=== PATIENT | male | born 1990 | race Caucasian/White ===

== ENCOUNTER 2020-10-25 | Outpatient (REF) | payer OTHER, SELFPAY ==
--- NOTE | ~2020-10-25 | XR_ITS ---
EXAMINATION: XR SHOULDER, LEFT CLINICAL INFORMATION: Left shoulder pain. COMPARISON: Most recent left shoulder radiographs dated 06/20/2015. TECHNIQUE: AP, scapular Y, and axillary views of the left shoulder. FINDINGS: Redemonstration of a cortical defect at the inferior glenoid with an adjacent 1.1 cm soft tissue ossification, consistent with a displaced bony Bankart lesion. Flattening and cortical irregularity at the posterolateral aspect of the humeral head, increased when compared to the prior examination and consistent with a Hill-Sachs deformity. Slight anterior subluxation of the humeral head on the axillary view. No significant marginal osteophytes. Small amount of air within the joint space as well as within the anterior overlying soft tissues. XR/XR shoulder LT min 2V IMPRESSION: Bony Bankart lesion with a resultant osseous fragment measuring up to 1.1 cm in the inferior joint space. Hill-Sachs deformity, more prominent when compared to the prior examination. Slight anterior subluxation of the humeral head on axillary views. Small amount of air within the joint space as well as within the anterior soft tissues, likely indicating a recent anteroinferior humeral head dislocation.
== END 2020-10-25 00:01 | disposition home or self-care (01) ==
LOC: HO.HOSX
PROVIDERS: Visit Provider Orthopaedic Surgery
DX: M25.512 Pain in left shoulder (principal); M25.312 Other instability, left shoulder
CPT/HCPCS: 73030

== ENCOUNTER → 2020-10-25 09:21 | Outpatient (BNVA) | payer OTHER, SELFPAY | PROVIDERS: PCP Internal Medicine; Visit Provider Orthopaedic Surgery | DX: M25.519 Pain in unspecified shoulder (principal) ==

== ENCOUNTER 2020-11-07 18:49 | Outpatient (REF) | payer OTHER, SELFPAY ==
--- NOTE | ~2020-11-07 | MR_ITS ---
EXAMINATION: MRI SHOULDER WITHOUT CONTRAST, LEFT CLINICAL INFORMATION: Instability. COMPARISON: Radiographs 10/25/2020. TECHNIQUE: MRI of the shoulder without contrast is performed on a 1.5 Stacie high-field scanner. FINDINGS: ROTATOR CUFF: Intact. No muscle atrophy or fatty infiltration. BICEPS: Normal. CORACOACROMIAL ARCH: The undersurface of the acromion is flat with no subacromial spur. The acromioclavicular joint is normal. LABRUM/CAPSULE: There is an osseous Bankart and irregular chronic tearing and scarring of the anterior inferior labrum. The osseous fragment measures approximately 10 x 5 mm, is slightly displaced medially and appears partially fused with the adjacent glenoid. GLENOHUMERAL JOINT/MARROW: There is full-thickness cartilage loss and flattening of the anterior inferior glenoid. Cartilage thinning and irregularity extends proximally to the anterior superior glenoid. There is a large Hill-Sachs deformity. There is a concavity with edema at the anterior aspect of the Hill-Sachs suggesting a recent recurrent anterior inferior dislocation. There is a moderate joint effusion with diffuse synovitis/debris. There is a small ossified body in the axillary recess and probable small bodies in the biceps tendon sheath. ADDITIONAL FINDINGS: None. MR/MR shoulder LT wo con IMPRESSION: Chronic anterior inferior shoulder dislocation with possible recent recurrent injury. Osseous Bankart which appears partially healed, with irregular tearing and scarring of the anterior inferior labrum, cartilage loss and remodeling of the anterior inferior glenoid, and a large Hill-Sachs deformity. Moderate joint effusion with synovitis/debris. No rotator cuff tear.
== END 2020-11-07 18:50 | disposition home or self-care (01) ==
LOC: HO.MRI 18:49
PROVIDERS: Visit Provider Orthopaedic Surgery
DX: M25.312 Other instability, left shoulder (principal)
CPT/HCPCS: 73221

== ENCOUNTER 2020-11-22 16:00 | Outpatient (RCR) | payer OTHER, SELFPAY ==
--- NOTE | 2020-11-09 13:15 | MHC.PT.EP ---
[facility] [place] Office [place] Office [place] Office [address] Stalin Ortiz [address] [phone] F: [phone] F: [phone] F: [phone] F: [phone] Physical Therapy Plan of Care Date of Evaluation: 11/09/20 Date of Surgery: NA Diagnosis: L SHLDER INSTABILITY Assessment: Pt IS 30 YO RHD M REFERRED TO PT FROM DR JONES WITH INSTABILITY L SHLDER. Pt REPORTS INJURY ABOUT 2 YRS AGO (DISLOCATION WITH SELF RE-LOCATION TYPE) WITH SOME SIMILAR INCIDENTS (LAST EPISODE ABOUT 1 MONTH AGO WHILE PLAYING HOCKEY). Pt HAS NEVER HAD HIS SHLDER RELOCATED IN ER AND HAS NOT HAD ANY PT TREATMENT. XRAY SHOWS HILL SACHS AND BANKART LESIONS AND DR JONES REPORTS TYPE 3 ACROMION. AWAITING MRI RESULTS. Pt PRESENTS WITH APPREHENSION AT END RANGES OF MOTION..LIMITED IN CAPSULAR PATTERN WITH LIMITED STRENGTH. REPORTS SOME PAIN BUT MOSTLY AFFECTED BY LIMITED ROM FOR WORKING OUT AND PLAYING SPORTS. MAY NEED SURGICAL INTERVENTION. SHOULD BENEFIT FROM PT FOR RC/SCAP STRENGTHENING WITH PROGRESSION TO STABILIZATION EXS WITH GENTLY STRETCHING GALINA. Frequency and Duration: The patient will be seen 2X/WK>1X/WK X 6 WKS Short Term Goals: 1. INCREASED POSTURE AWARENESS AND AWARENESS SHLDER CARE. FERNY/MARIA TAPING AT HOME WITH ASSIST IF INDICATED 2. I HEP WITH DC EX PLAN Still Operator Batch Or Continuous Goals: 1. DECREASED L SHLDER PAIN AT LEAST 50% WITH ADLS 2. INCREASED SHLDER ROM 10 DEGREES FOR FLEX, 20 DEGREES FOR ABD AND ER 3. INCREASED L SHLDER STRENGTH 1/2 MM GRADE 4. LESS FEELING OF APPREHENSION WITH USE L UE 5. IMPROVED SPADI Treatment Plan: Modalities to reduce pain, spasms and effusion. Manual therapy to restore motion and function. Therapeutic exercise to improve strength and flexibility. Neuromuscular re-education for posture and balance. Therapeutic activities to return to functional activities of daily living. Electronically signed by: ALLYSON CARSON PT Please sign and return to therapist. Thank you for your referral.
--- NOTE | 2021-02-24 13:43 | MHC.PT.DC ---
[facility] [place] Office [place] Office [place] Office [address] Stalin Ortiz [address] [phone] F: [phone] F: [phone] F: [phone] F: [phone] Physical Therapy Discharge Report Diagnosis: L SHLDER INSTABILITY Date of Surgery: NA Date of Evaluation: 11/09/20 Date of Discharge: 02/24/21 Treatments to Date: 3 Cancellations to Date: 3 No Shows to Date: Discharge Status: Patient Elected to Stop Discharge Summary: Pt LAST SEEN ON 11/22/20 THEN CANCELLED LAST SCHEDULED APPT. PER ASSESSMENT AT LAST SESSION PER NOTE FROM HANNA MERRILL LEAD SETTER...[ Pt progressed with ex's in stabe pos w/o px and pt instructed in proper progression w/program] Electronically signed by: ALLYSON CARSON PT Please sign and return to therapist. Thank you for your referral.
== END 2021-02-24 13:44 | disposition other institution (70) ==
LOC: HO.PT 16:00
PROVIDERS: PCP Internal Medicine; Visit Provider Orthopaedic Surgery
DX: M25.312 Other instability, left shoulder (principal)
CPT/HCPCS: 97110; 97162; 97530; 97535

== ENCOUNTER 2021-10-19 09:15 | Outpatient (REF) | payer OTHER, SELFPAY ==
[2021-10-19 09:48] LABS: MANUAL DIFF FLAG NO
[2021-10-19 10:04] LABS: Basophils Percent Auto 0.6 % (0-2); Eosinophils Absolute Auto 0.2 X10*3/uL (0.0-0.4); Eosinophils Percent Auto 3.3 % (0-4); Hematocrit 44.6 % (42.0-52.0); Hemoglobin 15.4 g/dl (14.0-18.0); Imm Gran Abs Auto 0.01 X10*3/uL (0.00-0.03); Imm Gran Pct Auto 0.2 % (0.0-0.4); Lymphocytes Absolute Auto 2.1 X10*3/uL (1.2-4.9); Mean Corpuscular HGB Conc 34.5 g/dl (31.0-36.0); Mean Corpuscular Hemoglobin 28.7 pg (27.0-33.0); Mean Corpuscular Volume 83.2 fL (80.0-98.0); Mean Platelet Volume 9.3 fL (9.4-12.4); Monocytes Absolute Auto 0.5 X10*3/uL (0.1-1.2); Monocytes Percent Auto 8.7 % (2-11); Neutrophils Absolute Auto 2.7 x10*3/uL (2.0-8.3); Neutrophils Percent Auto 49.2 % (45-73); Platelet Count 193 X10*3/uL (160-400); Red Blood Count 5.36 X10*6/uL (4.60-5.80); White Blood Count 5.4 X10*3/uL (4.8-10.8)
[2021-10-19 10:34] LABS: Alanine Aminotransferase 18 U/L (0-40); Albumin Level 4.6 g/dL (3.5-5.0); Alkaline Phosphatase 67 U/L (39-117); Anion Gap 10 (12-20); Aspartate Amino Transferase 16 U/L (5-37); Blood Urea Nitrogen 14 mg/dL (9-16); Calcium 9.5 mg/dL (8.4-10.2); Carbon Dioxide 26 mmol/L (22-29); Chloride 105 mmol/L (96-108); Cholesterol 199 mg/dL; Estimated Glomerular Filt Rate > 60; Glucose Fasting 87 mg/dL (60-99); HDL Cholesterol 32 mg/dL; LDL Cholesterol Calculated 144 mg/dl; Potassium 4.4 mmol/L (3.3-5.1); Sodium 137 mmol/L (135-145); Total Protein 7.3 g/dL (6.5-8.0); Triglycerides 116 mg/dL
[2021-10-19 10:43] LABS: Appearance Urine HAZY; Color Urine YELLOW; Glucose Urine UA NEG (NEG); Leukocyte Esterase Urine NEG (NEG); Nitrite Urine NEG (NEG); Specific Gravity - Urine 1.025 (1.005-1.025); Urine Blood NEG (NEG); Urine Ketones NEG (NEG); Urine Protein NEG (NEG-TRACE)
[2021-10-19 10:55] LABS: TSH reflex Free T4 1.58 uIU/mL (0.32-4.0)
[2021-10-25 07:52] LABS: Levetiracetam Keppra 21.6 mcg/mL (12.0-46.0)
== END 2021-10-19 09:16 | disposition home or self-care (01) ==
LOC: HO.LAB 09:15
PROVIDERS: PCP Internal Medicine; Visit Provider Internal Medicine
DX: Z00.00 Encounter for general adult medical examination without abnormal findings (principal); G40.909 Epilepsy, unspecified, not intractable, without status epilepticus
CPT/HCPCS: 36415; 80053; 80061; 80177; 81003; 82306; 84443; 85025

== ENCOUNTER 2023-10-29 12:55 | Outpatient (AMB) | payer OTHER, SELFPAY ==
--- NOTE | 2023-10-29 12:59 | A.OFFPC_ITS ---
Vital Signs 10/29/23 13:00 Height 6 ft Weight 256 lb BMI 34.7 BP 120/80 Blood Pressure Location Lt brachial Position Sitting Pulse 97 Pulse Source Pulse Oximeter Pulse Oximetry (%) 96 Oxygen Delivery Method Room Air Intake Visit Reasons: PE Diesel Dinkey Operator Required: No Accompanied by: Self / Same As Patient Allergies cephalexin [Keflex] Allergy (Unknown, Verified 10/29/23 13:30) Unknown Medication List - Last Reconciled 10/29/23 by Jhon Egan MD cholecalciferol (vitamin D3) 50 mcg PO DAILY 90 days levetiracetam 2,000 mg PO BID Tobacco use date assessed: 10/29/23 Dental Screening Dental Screen Date: 10/29/23 Did you have a dental visit in the last 12 months?: No Did you have a dental problem in the last 6 months where you did not have access to dental care?: No Was dental information given to patient?: No HPI PE HPI Details Patient comes in today for his annual physical examination States that he is just getting over a cold that he had over the past weekend States that he still has some nasal/sinus congestion and mild sore throat but feels that his symptoms are starting to clear up - he is just taking some OTC cough/cold meds PRN lately for symptomatic relief He denies any headaches or dizziness; denies any fever Denies any chest pains, no SOB No nausea/vomiting, no abdominal pain No change in bowel habits noted He denies any acute urinary symptoms He was not able to get his previously ordered labs done yet [facility] Medical History Overweight (BMI 25.0-29.9) Pure hypercholesterolemia Vitamin D deficiency Left knee pain Instability of left shoulder joint Epilepsy Surgical History H/O prior ablation treatment Family History Father Diabetes Hypertension Hyperlipidemia Mother Breast cancer Family/Other Alzheimers disease Social History Housing: Apartment Alcohol intake: current Alcohol intake frequency: a few times a month Alcohol type: beer Patient Tobacco Use Status: Never used Tobacco e-Cigarette/Vaping Use: Never Used Second Hand Smoke Exposure: Yes service: No Current occupational status: employed Current occupation: [employer] Cognitive needs: No Hearing needs: No Vision needs: No Questionnaire PHQ-9 Over the last 2 weeks, how often have you been bothered by any of the following problems? 1. Little interest or pleasure in doing things: not at all 2. Feeling down, depressed, or hopeless: not at all 3. Trouble falling or staying asleep, or sleeping too much: not at all 4. Feeling tired or having little energy: not at all 5. Poor appetite or overeating: not at all 6. Feeling bad about yourself - or that you are a failure or have let yourself or your family down: not at all 7. Trouble concentrating on things, such as reading the newspaper or watching television: not at all 8. Moving or speaking so slowly that other people could have noticed. Or the opposite - being so fidgety or restless that you have been moving around a lot more than usual: not at all 9. Thoughts that you would be better off or of hurting yourself in some way: not at all Total score: 0 Depression Screening Interpretation: Negative Depression Screening Done: Yes 35095 - PHQ-9 Billing: Yes Source: Developed by Drs. Aidan Ojeda, Desiree Phillips, James Muller and colleagues, with an educational frannie from [employer]. Thrive Questionnaire Date Thrive assessed: 10/29/23 I am a: Patient What is your living situation today?: I have a steady place to live Within the past 12 months, did the food you bought not last and you didn't have the money to get more?: Never true Within the past 12 months, did you worry whether your food would run out before you got money to buy more?: Never true Do you have trouble paying for medicines?: No Do you have trouble getting transportation to medical appointments?: No Do you have trouble paying your heating and electricity bill?: No Do you have trouble taking care of your child, family member or friend?: No Do you have trouble with day-to-day activities such as bathing, preparing meals, shopping, managing finances, etc.?: No Are you currently unemployed and looking for a job?: No Are you interested in more education?: No Please select the resources that you would like help with: None Currently or been in a relationship where the following occur: no concerns reported THRIVE Score: 0 AUDIT C Alcohol Use Questionnaire (AUDIT-C) 1. How often do you have a drink containing alcohol?: Never 3. How often do you have six or more drinks on one occasion?: Never Total Score: 0 Score Reviewed/Action Taken: Yes NIESHA-7 AMB Questionnaire NIESHA-7 Date NIESHA - 7 assessed: 10/29/23 Feeling nervous, anxious, or on edge: 0 = Not at all Not being able to stop or control worryin = Not at all Worrying too much about different things: 0 = Not at all Trouble relaxin = Not at all Being so restless that it is hard to sit still: 0 = Not at all Becoming easily annoyed or irritable: 0 = Not at all Feeling afraid as if something awful might happen: 0 = Not at all Total NIESHA-7 score (0-4 normal; 5-9 mild; 10-14 moderate; 15-21 severe): 0 Source: Developed by Drs. Aidan Ojeda, Desiree Phillips, James Muller and colleagues, with an educational frannie from [employer]. Review of Systems Const Denies chills, Denies fatigue, Denies fever(s), Denies headache(s), Denies malaise and Denies weakness Eyes Denies blurry vision, Denies change in vision, Denies irritation and Denies itc hy eyes ENT Denies dysphagia, Denies dizziness, Denies otalgia, Denies headache(s), Reports nasal congestion, Denies neck pain, Denies odynophagia, Denies sinus pain and Reports sore throat (mild) Card Denies chest pain, Denies rapid heart rate, Denies irregular heart rhythm, Denies palpitations and Denies dyspnea Resp Denies chest congestion, Denies cough, Denies dyspnea and Denies wheezing GI Denies abdominal pain, Denies bloating, Denies constipation, Denies dysphagia, Denies heartburn, Denies diarrhea, Denies nausea, Denies odynophagia and Denies vomiting Denies hematuria, Denies difficulty urinating, Denies dysuria, Denies urinary frequency and Denies urinary urgency Musc Denies back pain, Denies arthralgias, Denies joint swelling, Denies muscle weakness and Denies neck pain Skin/Breast Denies change in pigmentation, Denies lesions, Denies rash and Denies unusual bruising Neuro Denies dizziness, Denies headache(s), Denies paresthesias and Denies weakness Endo Denies fatigue and Denies palpitations Aller/Immun Denies itchy eyes and Denies wheezing Physical exam (Primary Care) Vital Signs: Last Vital Signs Pulse 97 10/29/23 13:00 BP 120/80 10/29/23 13:00 Pulse Ox 96 10/29/23 13:00 Oxygen Delivery Method Room Air 10/29/23 13:00 BMI result Body Mass Index 34.7 Tobacco/Smoking Status: Tobacco use Status Tobacco use date assessed 10/29/23 10/29/23 13:07 Patient Tobacco Use Status Never used Tobacco 10/29/23 13:07 e-Cigarette/Vaping Use Never Used 10/29/23 13:07 PHQ-9: PHQ-9 Score PHQ-9: Total score 0 10/29/23 13:07 Depression Screening Interpretation: Negative Thrive Assessment: Date of Thrive Assessment Date Thrive assessed 10/29/23 10/29/23 13:07 Currently or been in a relationship where the following occur: no concerns reported Const General: no acute distress, alert and awake Orientation/consciousness: patient oriented x3 HENMT Head: Yes normocephalic and Yes atraumatic Ears: external ears normal, TM's normal bilaterally and EAC's normal General nose exam: No nasal discharge present Face and sinus: Yes normal facial exam and Yes sinuses nontender Teeth and gingiva: dentition normal Throat: Yes tonsils normal (no TP congestion) and Yes posterior oropharynx abnormal (increased erythema of the posterior pharynx) Eyes Eyelids: Yes eyelids normal Conjunctivae: conjunctivae normal Pupils: Equal, round and reactive pupils present EOM: EOMs intact bilaterally Neck Neck: Yes no lymphadenopathy and Yes supple Thyroid: Thyroid normal Resp Auscultation: clear to auscultation bilaterally, no rales and no wheezes Cardio Rate: regular rate Rhythm: regular rhythm Heart sounds: no murmurs GI Palpation (GI): Soft to palpation, nontender and No hepatosplenomegaly present Auscultation: normal bowel sounds General: Yes no CVA tenderness Back/Spine/Pelvis Back: no CVA tenderness Thoracic/Lumbar Spine: thoracic and lumbar spine normal to inspection Skin Lesions: no lesions Rashes: no rashes Neuro General: patient oriented x3, moves all extremities, no focal motor deficits and CN's II-XI intact bilaterally Cranial nerves: Yes Equal, round and reactive pupils present Cognition (Neuro): normal cognition Gait exam (Neuro): Normal gait present Extrem General: Yes no clubbing, cyanosis or edema Assessment and Plan Assessment & Plan (1) Annual physical exam: Code(s): Z00.00 - Encounter for general adult medical examination without abnormal findings Plan: Check labs - reminded that his labs were ordered from last year and he just has to go and get them done anytime [place] (2) Upper respiratory tract infection: Code(s): J06.9 - Acute upper respiratory infection, unspecified Qualifiers: URI type: unspecified viral URI Qualified Code(s): J06.9 - Acute upper respiratory infection, unspecified Plan: Patient feels that his symptoms are starting to improve/resolve Continue OTC cough/cold meds PRN for symptomatic relief (3) Pure hypercholesterolemia: Code(s): E78.00 - Pure hypercholesterolemia, unspecified Plan: Reminded that his LDL cholesterol level was elevated when it was last checked a couple of years ago in 2021; patient did not get his labs done as ordered last year Reinforced low cholesterol diet Will recheck fasting lipids [place] for follow up - advised that if his LDL cholesterol come back significantly higher than previous, we may need to consider starting him on cholesterol-lowering medications Will have him recheck his labs in 1 year for follow up (4) Epilepsy: Code(s): G40.909 - Epilepsy, unspecified, not intractable, without status epilepticus Qualifiers: Epilepsy type: unspecified Intractability: not intractable Status epilepticus: without status epilepticus Qualified Code(s): G40.909 - Epilepsy, unspecified, not intractable, without status epilepticus Plan: No seizures recently Continue Levetiracetam 2000 mg BID Will recheck his serum Keppra level for follow up Follow up with [facility] as scheduled (5) Vitamin D deficiency: Code(s): E55.9 - Vitamin D deficiency, unspecified Plan: Continue Vitamin D3 2000 units QD Will recheck his Vitamin D level for follow up (6) Instability of left shoulder joint: Comment: MRI of the left shoulder done on 11/07/2020 revealed (+) chronic anterior inferior shoulder dislocation with possible recent recurrent injury. Osseous Bankart w hich appears partially healed, with irregular tearing and scarring of the anterior inferior labrum, cartilage loss and remodeling of the anterior inferior glenoid, and a large Hill-Sachs deformity. Moderate joint effusion with synovitis/debris. No rotator cuff tear is seen. Code(s): M25.312 - Other instability, left shoulder Plan: Follow up with orthopedics as scheduled (7) Obesity (BMI 30-39.9): Code(s): E66.9 - Obesity, unspecified Plan: Reinforced diet/exercise as tolerated/lose weight - he has gained some weight since his last visit a year ago States that he has not been able to get back to the gym consistently since he returned to in-person work sometime last year - he was working out consistently when he was working from home during the pandemic Plan To return in 1 year for his next annual physical examination Orders: Orders Complete Blood Count Auto Diff 364 Days D64.9 - Anemia, unspecified, Z00.00 - Encounter for general adult medical examination without abnormal findings TSH reflex Free T4 364 Days E78.00 - Pure hypercholesterolemia, unspecified, Z00.00 - Encounter for general adult medical examination without abnormal findings UA CC w/rflx Micro + Cult 364 Days R30.0 - Dysuria, Z00.00 - Encounter for general adult medical examination without abnormal findings Comprehensive [place]. Panel Fast 364 Days E78.00 - Pure hypercholesterolemia, unspecified, Z00.00 - Encounter for general adult medical examination without abnormal findings Lipid Panel 364 Days E78.00 - Pure hypercholesterolemia, unspecified, Z00.00 - Encounter for general adult medical examination without abnormal findings Vitamin D 25-OH Total 364 Days E55.9 - Vitamin D deficiency, unspecified, Z00.00 - Encounter for general adult medical examination without abnormal findings Coding Level of Care Code Est Pt Prev Care [id number]([id number]) Diagnoses Annual physical exam Z00.00 Viral upper respiratory tract infection J06.9 URI type: unspecified viral URI Pure hypercholesterolemia E78.00 Nonintractable epilepsy without status epilepticus, unspecified epilepsy type G40.909 Epilepsy type: unspecified Intractability: not intractable Status epilepticus: without status epilepticus Vitamin D deficiency E55.9 Instability of left shoulder joint M25.312 Obesity (BMI 30-39.9) E66.9
[2023-10-29 13:00] VITALS: BP 120/80; PULSE 97; O2SAT 96; BMI 34.7
== END 2023-10-29 13:35 | disposition home or self-care (01) ==
PROVIDERS: PCP Internal Medicine; Visit Provider Internal Medicine
DX: Z00.00 Encounter for general adult medical examination without abnormal findings (principal); G40.909 Epilepsy, unspecified, not intractable, without status epilepticus; E66.9 Obesity, unspecified; Z68.34 Body mass index [BMI] 34.0-34.9, adult; J06.9 Acute upper respiratory infection, unspecified; E78.00 Pure hypercholesterolemia, unspecified; E55.9 Vitamin D deficiency, unspecified; M25.312 Other instability, left shoulder
CPT/HCPCS: 99395

== ENCOUNTER 2024-10-30 12:37 | Outpatient (AMB) | payer OTHER, SELFPAY ==
--- NOTE | 2024-10-30 12:46 | MHC.PC.OV ---
Vital Signs 10/30/24 12:49 Height 6 ft Weight 241 lb BMI 32.7 BP 120/76 Blood Pressure Location Lt brachial Position Sitting Pulse 89 Pulse Source Pulse Oximeter Pulse Oximetry (%) 97 Oxygen Delivery Method Room Air Intake Visit Reasons: pe Processing Analyst Required: No Accompanied by: Self / Same As Patient Allergies cephalexin [Keflex] Allergy (Unknown, Verified 10/30/24 13:11) Unknown Medication List - Last Reconciled 10/30/24 by Jhon Egan MD cholecalciferol (vitamin D3) 50 mcg PO DAILY 90 days levetiracetam 2,000 mg PO BID Tobacco use date assessed: 10/30/24 Dental Screening Dental Screen Date: 10/30/24 Did you have a dental visit in the last 12 months?: No Did you have a dental problem in the last 6 months where you did not have access to dental care?: No Was dental information given to patient?: No HPI pe HPI Details Patient comes in today for his annual physical examination States that feels okay but reports feeling fatigued often Notes that he feels tired even when he just woke up in the morning States that he drinks a lot of coffee during the day to help keep him alert so he is not able to tell whether he has any significant daytime somnolence or not but thinks it is likely he does since he has to drink a lot a coffee to keep him going States that his father and his brother both have sleep apnea and he suspects that he may also have it as well He denies any headaches or dizziness Denies any chest pains, no shortness of breath No nausea/vomiting, abdominal pain No change bowel habits noted He denies any acute urinary symptoms States that he has not had any seizures since 2020 - he continues to take Keppra 2000 mg BID He used to follow-up with [facility] neurology but has not been back to see them in over 2 years now He was not able to get his previously ordered labs done prior to his appointment today - states that he will try to get these done [facility] Medical History Overweight (BMI 25.0-29.9) Pure hypercholesterolemia Vitamin D deficiency Left knee pain Instability of left shoulder joint Epilepsy Surgical History H/O prior ablation treatment Family History Father Diabetes Hypertension Hyperlipidemia Mother Breast cancer Family/Other Alzheimers disease Social History Housing: Apartment Alcohol intake: current Alcohol intake frequency: a few times a month Alcohol type: beer Patient Tobacco Use Status: Never used Tobacco e-Cigarette/Vaping Use: Never Used Second Hand Smoke Exposure: Yes service: No Current occupational status: employed Current occupation: [employer] Cognitive needs: No Hearing needs: No Vision needs: No Questionnaire PHQ-9 Over the last 2 weeks, how often have you been bothered by any of the following problems? 1. Little interest or pleasure in doing things: not at all 2. Feeling down, depressed, or hopeless: not at all 3. Trouble falling or staying asleep, or sleeping too much: not at all 4. Feeling tired or having little energy: not at all 5. Poor appetite or overeating: not at all 6. Feeling bad about yourself - or that you are a failure or have let yourself or your family down: not at all 7. Trouble concentrating on things, such as reading the newspaper or watching television: not at all 8. Moving or speaking so slowly that other people could have noticed. Or the opposite - being so fidgety or restless that you have been moving around a lot more than usual: not at all 9. Thoughts that you would be better off or of hurting yourself in some way: not at all Total score: 0 Depression Screening Interpretation: Negative Depression Screening Done: Yes 08224 - PHQ-9 Billing: Yes Source: Developed by Drs. Aidan Ojeda, Desiree Phillips, James Muller and colleagues, with an educational frannie from [employer]. Thrive Questionnaire Date Thrive assessed: 10/30/24 I am a: Patient What is your living situation today?: I choose not to answer this question Within the past 12 months, did the food you bought not last and you didn't have the money to get more?: I choose not to answer this question Within the past 12 months, did you worry whether your food would run out before you got money to buy more?: I choose not to answer this question Do you have trouble paying for medicines?: I choose not to answer this question Do you have trouble getting transportation to medical appointments?: I choose not to answer this question Do you have trouble paying your heating and electricity bill?: I choose not to answer this question Do you have trouble taking care of your child, family member or friend?: I choose not to answer this question Do you have trouble with day-to-day activities such as bathing, preparing meals, shopping, managing finances, etc.?: I choose not to answer this question Are you currently unemployed and looking for a job?: I choose not to answer this question Are you interested in more education?: I choose not to answer this question Please select the resources that you would like help with: None Currently or been in a relationship where the following occur: I choose not to answer THRIVE Score: 0 AUDIT C Alcohol Use Questionnaire (AUDIT-C) 1. How often do you have a drink containing alcohol?: Never 3. How often do you have six or more drinks on one occasion?: Never Total Score: 0 Score Reviewed/Action Taken: Yes NIESHA-7 AMB Questionnaire NIESHA-7 Date NIESHA - 7 assessed: 10/30/24 Feeling nervous, anxious, or on edge: 0 = Not at all Not being able to stop or control worryin = Not at all Worrying too much about different things: 0 = Not at all Trouble relaxin = Not at all Being so restless that it is hard to sit still: 0 = Not at all Becoming easily annoyed or irritable: 0 = Not at all Feeling afraid as if something awful might happen: 0 = Not at all Total NIESHA-7 score (0-4 normal; 5-9 mild; 10-14 moderate; 15-21 severe): 0 Source: Developed by Drs. Aidan Ojeda, Desiree Phillips, James Muller and colleagues, with an educational frannie from [employer]. Review of Systems Const Denies chills, Reports daytime sleepiness, Reports fatigue, Denies fever(s), Denies headache(s), Denies malaise and Denies weakness Eyes Denies blurry vision, Denies change in vision, Denies irritation and Denies itchy eyes ENT Denies dysphagia, Denies dizziness, Denies otalgia, Denies headache(s), Denies nasal congestion, Denies neck pain, Denies odynophagia and Denies sore throat Card Denies chest pain, Denies rapid heart rate, Denies irregular heart rhythm, Denies palpitations and Denies dyspnea Resp Denies chest congestion, Denies cough, Denies dyspnea and Denies wheezing GI Denies abdominal pain, Denies bloating, Denies constipation, Denies dysphagia, Denies heartburn, Denies diarrhea, Denies nausea, Denies odynophagia and Denies vomiting Denies hematuria, Denies difficulty urinating, Denies dysuria, Denies urinary frequency and Denies urinary urgency Musc Denies back pain, Denies arthralgias, Denies joint swelling, Denies muscle weakness and Denies neck pain Skin/Breast Denies change in pigmentation, Denies lesions, Denies rash and Denies unusual bruising Neuro Denies dizziness, Denies headache(s), Denies convulsions, Denies paresthesias and Denies weakness Psych Denies anxiety and Denies depression Endo Reports fatigue and Denies palpitations Aller/Immun Denies itchy eyes and Denies wheezing Physical exam (Primary Care) Vital Signs: Last Vital Signs Pulse 89 10/30/24 12:49 BP 120/76 10/30/24 12:49 Pulse Ox 97 10/30/24 12:49 Oxygen Delivery Method Room Air 10/30/24 12:49 BMI result Body Mass Index 32.7 Tobacco/Smoking Status: Tobacco use Status Tobacco use date assessed 10/30/24 10/30/24 12:54 Patient Tobacco Use Status Never used Tobacco 10/30/24 12:54 e-Cigarette/Vaping Use Never Used 10/30/24 12:54 PHQ-9: PHQ-9 Score PHQ-9: Total score 0 10/30/24 13:30 Depression Screening Interpretation: Negative Thrive Assessment: Date of Thrive Assessment Date Thrive assessed 10/30/24 10/30/24 12:54 Currently or been in a relationship where the following occur: I choose not to answer Const General: no acute distress, alert and awake Orientation/consciousness: patient oriented x3 HENMT Head: Yes normocephalic and Yes atraumatic Ears: external ears normal, TM's normal bilaterally and EAC's normal General nose exam: No nasal discharge present Face and sinus: Yes normal facial exam and Yes sinuses nontender Teeth and gingiva: dentition normal Throat: Yes posterior oropharynx normal and Yes tonsils normal (no TP congestion) Eyes Eyelids: Yes eyelids normal Conjunctivae: conjunctivae normal Pupils: Equal, round and reactive pupils present EOM: EOMs intact bilaterally Neck Neck: Yes supple and No lymphadenopathy Thyroid: Thyroid normal Resp Auscultation: clear to auscultation bilaterally, no rales and no wheezes Cardio Rate: regular rate Rhythm: regular rhythm Heart sounds: no murmurs GI Palpation (GI): Soft to palpation, nontender and No hepatosplenomegaly present Auscultation: normal bowel sounds General: Yes no CVA tenderness Back/Spine/Pelvis Back: no CVA tenderness Thoracic/Lumbar Spine: thoracic and lumbar spine normal to inspection Skin Lesions: no lesions Rashes: no rashes Neuro General: patient oriented x3, moves all extremities, no focal motor deficits and CN's II-XI intact bilaterally Cranial nerves: Yes Equal, round and reactive pupils present Cognition (Neuro): normal cognition Gait exam (Neuro): Normal gait present Extrem General: Yes no clubbing, cyanosis or edema Coding Level of Care Code Est Pt Prev Care 18-39y(27750) Diagnoses Annual physical exam Z00.00 Fatigue, unspecified type R53.83 Fatigue type: unspecified Pure hypercholesterolemia E78.00 Nonintractable epilepsy without status epilepticus, unspecified epilepsy type G40.909 Epilepsy type: unspecified Intractability: not intractable Status epilepticus: without status epilepticus Vitamin D deficiency E55.9 Instability of left shoulder joint M25.312 Obesity (BMI 30-39.9) E66.9 Additional Codes PHQ-9 - 97447 - PHQ-9 Billing: Yes ([id number]) Assessment & Plan Assessment & Plan (1) Annual physical exam: Code(s): Z00.00 - Encounter for general adult medical examination without abnormal findings Category: Medical Plan: Check labs - he is instructed to get his previously ordered labs done [place] (2) Fatigue: Code(s): R53.83 - Other fatigue Category: Medical Qualifiers: Fatigue type: unspecified Qualified Code(s): R53.83 - Other fatigue Plan: Patient suspects that he may have sleep apnea States that he often feels tired even when he just woke up in the morning He reportedly drinks a lot of coffee throughout the day to help keep him going so he is not able to tell whether he has any significant daytime somnolence or not States that his father and his brother both have sleep apnea and he suspects that he may also have it as well Will refer him to Sleep Medicine for further evaluation and management (3) Pure hypercholesterolemia: Code(s): E78.00 - Pure hypercholesterolemia, unspecified Category: Medical Plan: Have reminded patient that his LDL cholesterol level was elevated when it was last checked a couple of years ago in 2021; patient did not get his labs done as ordered last year Reinforced low cholesterol diet Will recheck his fasting lipids [place] for follow up - advised that if his LDL cholesterol come back significantly higher than previous, we may need to consider starting him on cholesterol-lowering medications Will have him recheck his labs again in 1 year (4) Epilepsy: Code(s): G40.909 - Epilepsy, unspecified, not intractable, without status epilepticus Category: Medical Qualifiers: Epilepsy type: unspecified Intractability: not intractable Status epilepticus: without status epilepticus Qualified Code(s): G40.909 - Epilepsy, unspecified, not intractable, without status epilepticus Plan: No seizures recently - states that he has not had any seizures since 2020 Continue Levetiracetam 2000 mg BID Will recheck his serum Keppra level for follow up He used to follow up with [facility] Neurology but he has not been back to see them in a couple of years now (5) Vitamin D deficiency: Code(s): E55.9 - Vitamin D deficiency, unspecified Category: Medical Plan: Continue Vitamin D3 2000 units QD Will recheck his Vitamin D level for follow up (6) Instability of left shoulder joint: Comment: MRI of the left shoulder done on 11/07/2020 revealed (+) chronic anterior inferior shoulder dislocation with possible recent recurrent injury. Osseous [place] which appears partially healed, with irregular tearing and scarring of the anterior inferior labrum, cartilage loss and remodeling of the anterior inferior glenoid, and a large Hill-Sachs deformity. Moderate joint effusion with synovitis/debris. No rotator cuff tear is seen. Code(s): M25.312 - Other instability, left shoulder Category: Medical Plan: Follow up with orthopedics as scheduled (7) Obesity (BMI 30-39.9): Code(s): E66.9 - Obesity, unspecified Category: Medical Plan: Reinforced diet/exercise as tolerated/lose weight Plan To return in 1 year for his next annual physical examination Orders: Orders UA CC w/rflx Micro + Cult 1 Year R30.0 - Dysuria, Z00.00 - Encounter for general adult medical examination without abnormal findings Vitamin D 25-OH Total 1 Year E55.9 - Vitamin D deficiency, unspecified, Z00.00 - Encounter for general adult medical examination without abnormal findings Levetiracetam Keppra 10/30/24 G40.909 - Epilepsy, unspecified, not intractable, without status epilepticus Complete Blood Count Auto Diff 1 Year D64.9 - Anemia, unspecified, Z00.00 - Encounter for general adult medical examination without abnormal findings Comprehensive [place]. Panel Fast 1 Year E78.00 - Pure hypercholesterolemia, unspecified, Z00.00 - Encounter for general adult medical examination without abnormal findings Lipid Panel 1 Year E78.00 - Pure hypercholesterolemia, unspecified, Z00.00 - Encounter for general adult medical examination without abnormal findings TSH reflex Free T4 1 Year E78.00 - Pure hypercholesterolemia, unspecified, Z00.00 - Encounter for general adult medical examination without abnormal findings Levetiracetam Keppra 1 Year G40.909 - Epilepsy, unspecified, not intractable, without status epilepticus, Z00.00 - Encounter for general adult medical examination without abnormal findings Referrals Sleep Medicine Referral R40.0 - Somnolence, R53.83 - Other fatigue
[2024-10-30 12:49] VITALS: BP 120/76; PULSE 89; O2SAT 97; BMI 32.7
== END 2024-10-30 13:20 | disposition home or self-care (01) ==
PROVIDERS: PCP Internal Medicine; Visit Provider Internal Medicine
DX: Z00.00 Encounter for general adult medical examination without abnormal findings (principal); G40.909 Epilepsy, unspecified, not intractable, without status epilepticus; E66.9 Obesity, unspecified; Z68.32 Body mass index [BMI] 32.0-32.9, adult; R53.83 Other fatigue; E78.00 Pure hypercholesterolemia, unspecified; E55.9 Vitamin D deficiency, unspecified; M25.312 Other instability, left shoulder

== ENCOUNTER → 2024-10-30 12:37 | Outpatient (BNVA) | payer OTHER, SELFPAY | PROVIDERS: PCP Internal Medicine; Visit Provider Internal Medicine | DX: Z00.00 Encounter for general adult medical examination without abnormal findings (principal); R53.83 Other fatigue; E78.00 Pure hypercholesterolemia, unspecified; G40.909 Epilepsy, unspecified, not intractable, without status epilepticus; E55.9 Vitamin D deficiency, unspecified; M25.312 Other instability, left shoulder; E66.9 Obesity, unspecified; Z68.32 Body mass index [BMI] 32.0-32.9, adult; Z79.899 Other long term (current) drug therapy | CPT/HCPCS: 96127 ==

== ENCOUNTER 2024-11-06 07:43 | Outpatient (REF) | payer OTHER, SELFPAY ==
[2024-11-06 07:56] LABS: MANUAL DIFF FLAG NO
[2024-11-06 08:28] LABS: Basophils Percent Auto 0.6 % (0-2); Eosinophils Absolute Auto 0.3 X10*3/uL (0.0-0.4); Eosinophils Percent Auto 5.2 % (0-4); Hematocrit 43.4 % (42.0-52.0); Hemoglobin 14.9 g/dl (14.0-18.0); Imm Gran Abs Auto 0.01 X10*3/uL (0.00-0.03); Imm Gran Pct Auto 0.2 % (0.0-0.4); Lymphocytes Absolute Auto 2.3 X10*3/uL (1.2-4.9); Lymphocytes Percent Auto 47.5 % (20-40); Mean Corpuscular HGB Conc 34.3 g/dl (31.0-36.0); Mean Corpuscular Volume 84.4 fL (80.0-98.0); Mean Platelet Volume 9.5 fL (9.4-12.4); Monocytes Absolute Auto 0.4 X10*3/uL (0.1-1.2); Monocytes Percent Auto 8.1 % (2-11); Neutrophils Absolute Auto 1.8 x10*3/uL (2.0-8.3); Neutrophils Percent Auto 38.4 % (45-73); Platelet Count 208 X10*3/uL (160-400); Red Blood Count 5.14 X10*6/uL (4.60-5.80); Red Cell Distribution Width 12.3 % (11.0-16.0); White Blood Count 4.8 X10*3/uL (4.8-10.8)
[2024-11-06 08:38] LABS: Appearance Urine Clear; Color Urine Yellow; Glucose Urine UA Negative (Negative); Leukocyte Esterase Urine Negative (Negative); Nitrite Urine Negative (Negative); Specific Gravity - Urine 1.025 (1.005-1.025); Urine Blood Negative (Negative); Urine Ketones Negative (Negative); Urine Protein Negative (Neg-Trace)
[2024-11-06 09:23] LABS: Alanine Aminotransferase 33 U/L (0-40); Albumin Level 4.4 g/dL (3.5-5.0); Alkaline Phosphatase 66 U/L (39-117); Anion Gap 10 (12-20); Aspartate Amino Transferase 21 U/L (5-37); Bilirubin Total 0.4 mg/dL (0.0-1.0); Blood Urea Nitrogen 19 mg/dL (9-16); Carbon Dioxide 23 mmol/L (22-29); Chloride 110 mmol/L (96-108); Cholesterol 207 mg/dL (<200); Estimated Glomerular Filt Rate > 60; Glucose Fasting 96 mg/dL (60-99); HDL Cholesterol 33 mg/dL (>40); LDL Cholesterol Calculated 112 mg/dL (<100); Potassium 4.2 mmol/L (3.3-5.1); Sodium 139 mmol/L (135-145); Total Protein 7.7 g/dL (6.5-8.0); Triglycerides 312 mg/dL (<150)
[2024-11-06 09:39] LABS: TSH reflex Free T4 2.08 uIU/mL (0.32-4.0); Vitamin D 25-OH Total 9.7 ng/mL (>30)
== END 2024-11-06 07:44 | disposition home or self-care (01) ==
LOC: HO.LAB 07:43
PROVIDERS: PCP Internal Medicine; Visit Provider Internal Medicine
DX: Z00.00 Encounter for general adult medical examination without abnormal findings (principal); D64.9 Anemia, unspecified; E78.00 Pure hypercholesterolemia, unspecified; E55.9 Vitamin D deficiency, unspecified; G40.909 Epilepsy, unspecified, not intractable, without status epilepticus; R30.0 Dysuria
CPT/HCPCS: 36415; 80053; 80061; 80177; 81003; 82306; 84443; 85025

== ENCOUNTER 2025-09-01 08:23 | Outpatient (AMB) | payer OTHER, SELFPAY ==
--- OUTSIDE RECORDS SUMMARY | 2025-09-01 08:25 | XMS_ITS | Clinical Summary ---
Author Organization [facility] Address [address] [place] [phone] Phone Care Team Providers Care Medical Payment Poster Name Role Phone Jacqueline Darryl Golden Primary Care Provider [phone] Social History Tobacco Use Types Packs/Day Years Used Date Smoking Tobacco: Never Assessed Sex and Gender Information Value Date Recorded Sex Assigned at Not on file Legal Sex Male 6:04 PM EST Gender Identity Not on file Sexual Orientation Not on file Plan of Treatment Not on file Medical Devices Not on file Insurance [employer] [place] [address] [address] HMO [facility] HMO POS Member Subscriber Plan / Payer (Ef fective 2013-Present) Name:Gautam Amaral Relation to Subscriber:Self Name:Gautam Amaral Payer ID:[id number] (NAIC) Type:HMO Address: [address] HMO [facility] HMO POS Member Subscriber Plan / Payer (Ef fective 2013-Present) Name:Gautam Amaral Relation to Subscriber:Self Name:Gautam Amaral Payer ID:[id number] (NAIC) Type:HMO Address: [address] HMO [facility] HMO POS Member Subscriber Plan / Payer (Ef fective 2013-Present) Name:Gautam Amaral Relation to Subscriber:Self Name:Gautam Amaral Payer ID:[id number] (NAIC) Type:O Address: [address] HMO [facility] HMO POS Member Subscriber Plan / Payer (Ef fective 2013-Present) Name:Gautam Amaral Relation to Subscriber:Self Name:Gautam Amaral Payer ID:[id number] (NAIC) Type:HMO Address: [address] HMO [facility] HMO POS HMO [facility] HMO POS HMO HMO POS Member Subscriber Plan / Payer (Ef fective 2013-Present) Name:Gautam Amaral Relation to Subscriber:Self Name:Gautam Amaral Payer ID:[id number] (NAIC) Type:HMO Address: [address] HMO [facility] HMO POS HMO Care Teams Medical Payment Poster Relationship Specialty Start Date End Date Darryl Phillips DO [address] [place] [address] PCP - General Internal Medicine 06/18/15 Additional Source Comments The information contained in this document represents components of the legal health record. It is not the complete legal health record.[facility]
[2025-09-01 08:27] VITALS: BP 116/80; PULSE 76; O2SAT 96; BMI 33.5
--- NOTE | 2025-09-01 08:27 | MHC.OFFVIS ---
Vital Signs 09/01/25 08:27 Height 6 ft Weight 247 lb BMI 33.5 BP 116/80 Blood Pressure Location Lt brachial Position Sitting Pulse 76 Pulse Source Pulse Oximeter Pulse Oximetry (%) 96 Oxygen Delivery Method Room Air Intake Visit Reasons: INP Somnolence Intake Note: Patient presents QA SOFTWARE TESTER EMERY. States that he often feels tired even when he just woke up in the morning. He reportedly drinks a lot of coffee throughout the day to help keep him going so he is not able to tell whether he has any significant daytime somnolence or not. Father and his brother both have sleep apnea and he suspects that he may also have it as well. Hard time falling asleep at time. Goes to bed at 12am wakes up at 7am. Wakes up 1 time a night. Witnessed snoring no apnea/gasping. Naps 1-2hrs. No history of sleep studies. Accompanied by: Self / Same As Patient Allergies cephalexin (Keflex) Allergy (Unknown, Verified 09/01/25 08:30) Unknown HPI Comments Details: 35 year old male is referred to us by his pcp Dr. Egan for a sleep apnea evaluation. 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 Epilepsy, taking levitracetram 2500mg qam, 2500mg qpm. Lacosamide 100mg po qam 100mg qpm started due to last seizure May 2025, simple partial seizures, repeating sounds triggers it, aura sensation, non responsive, loses consciuousness for 10min, tremors entire body, tongued retracts back against the bottom teeth causing lacerations, denies vision changes, feels dazed and wakes up fatigued then falls asleep. Denies bowel and urinary incontinence. He is managed by Dr. Baires at [facility]. He does not drive knows his triggers. For the last 2 years he has been snoring loudly, disruptive to his bed partner. He tried using a snore gaurd and still snores loudly. He denies bruxism, clenching jaw pain. He denies acid reflux, parasomnias, thrashing behavior. 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 He has bilateral restless legs, with paresthesias worse at night. Memory is stable, stm recall is poor. Mood and diet is stable. Denies smoking, MJ, edibles, and alcohol use is social. FH mom breast cancer 55 passed. Dad 58 type I Diabetic. Brother + sleep apnea. [facility] Medical History Overweight (BMI 25.0-29.9) Pure hypercholesterolemia Vitamin D deficiency Left knee pain Instability of left shoulder joint Epilepsy Surgical History H/O prior ablation treatment Family History Father Diabetes Hypertension Hyperlipidemia Mother Breast cancer Family/Other Alzheimers disease Social History Housing: Apartment Alcohol intake: current Alcohol intake frequency: a few times a month Alcohol type: beer Patient Tobacco Use Status: Never used Tobacco e-Cigarette/Vaping Use: Never Used Second Hand Smoke Exposure: Yes service: No Current occupational status: employed Current occupation: [employer] Cognitive needs: No Hearing needs: No Vision needs: No Physical Exam Vital Signs: Last Vital Signs Pulse 76 09/01/25 08:27 BP 116/80 09/01/25 08:27 Pulse Ox 96 09/01/25 08:27 Oxygen Delivery Method Room Air 09/01/25 08:27 BMI result Body Mass Index 33.5 Const General: cooperative, comfortable and no acute distress Nutritional Appearance: average body habitus Orientation/consciousness: patient oriented x3 Eyes Pupils: Equal, round and reactive pupils present Neck Neck: Yes full ROM Resp Effort & Inspection: normal respiratory effort and able to speak in complete sentences Neuro General: patient oriented x3 and moves all extremities Cranial nerves: Yes Equal, round and reactive pupils present, Yes Normal accommodation reflex present, Yes Normal facial strength present, Yes Midline tongue present, Yes Ability to bilaterally rotate head present and Yes Ability to bilaterally elevate shoulders present Cognition (Neuro): normal cognition Gait exam (Neuro): Normal gait present Motor exam (neuro): 5/5 motor strength present throughout and Normal motor muscle tone present throughout Psych Appearance: grossly normal and well kempt Speech and movement: Normal speech and movement present Thought process: Normal thought process present Results Reviewed Results Reviewed: labs pending from [facility] Assessment & Plan Assessment & Plan (1) Excessive daytime sleepiness: Code(s): G47.19 - Other hypersomnia Category: Medical (2) Loud snoring: Code(s): R06.83 - Snoring Category: Medical (3) Seizures: Code(s): R56.9 - Unspecified convulsions Category: Medical Plan HST r/o emery Labs requested. Continue Keppra and lacosamide per neuro [facility]. f/u in 3 months. Orders: Orders RT home sleep study Today G47.19 - Other hypersomnia Patient Instructions: Please complete the following fasting labs to rule out deficiencies. CBC/CMP/ B12/ Vit D/ TSH/ Homocysteine and MMA/ Ferritin. Sleep Hygiene provided: set a scheduled bedtime and wake time to help regulate the circadian rhythm and balance the release of pituitary hormones. Sleep in a dark room, temperatures below 68 degrees, and no devices n bed. Limit caffeinated products 6 hours prior to bed, and limit fluids 2-4 hours prior to bed. Gentle night yoga, diffusing essential oils, and playing soft music can be relaxing. Coding Level of Care Code Est Pt Level 4 (08373) Diagnoses Excessive daytime sleepiness G47.19 Loud snoring R06.83 Seizures R56.9 Sleep Questionnaire Difficulty falling asleep: Yes Difficulty staying asleep?: No Number of arousals: 0 Snoring: Yes Witnessed apneas: No Gasping arousals: No Nocturia: No GERD: No Vivid dreams: No Acting out dreams: No Abnormal behavior in sleep: No Abnormal movements in sleep: No Morning headaches: Yes Excessive daytime sleepiness: Yes Daytime naps: No Restless legs: No Hallucinations: No Sleep paralysis: Yes Drop attacks: No Sleep Study: No CPAP: No
== END 2025-09-01 09:07 | disposition home or self-care (01) ==
LOC: HO.HSMC 08:24
PROVIDERS: PCP Internal Medicine; Visit Provider Physician Assistant Medical
DX: G47.19 Other hypersomnia (principal); R06.83 Snoring; R56.9 Unspecified convulsions
CPT/HCPCS: 99214